=== PATIENT | female | born 1950 | race Caucasian/White ===

== ENCOUNTER 2024-02-03 13:59 | Inpatient (IN) | payer MEDICARE, OTHER ==
[~2024-02-03] VITALS: Ht 180.3 cm; Wt 107.0 kg
[2024-02-03] MEDS ORDERED: RACEPINEPHRINE HCL 2.25% 0.5 ML NEBU ONE (14:16)
[2024-02-03] MEDS ORDERED: DILT180T PO (14:31)
[2024-02-03] MEDS ORDERED: ASPI-1094 PO (14:31)
[2024-02-03] MEDS ORDERED: PIPERACILLIN/TAZOBACTAM/D5W 50 ML IV ONE (14:36)
[2024-02-03] MEDS: PIPERACILLIN SODIUM/TAZOBACTAM 3.375 G in IV DEXTROSE 5% 50 ML IV ONE (14:38)
[2024-02-03] MEDS: IV NORMAL SALINE 1000 ML BAG IV ONE (14:38)
[2024-02-03 14:50] LABS: CALCIUM 9.8 mg/dL (8.5-10.1); CARBON DIOXIDE 28 mmol/L (21-32); CHLORIDE 97 mmol/L (98-107); CREATININE 0.8 mg/dL (0.6-1.3); GLUCOSE 142 mg/dL (74-106); POTASSIUM 4.1 mmol/L (3.5-5.1); SODIUM SERUM 136 mmol/L (136-145); UREA NITROGEN, BLOOD 16 mg/dL (7-18)
[2024-02-03 14:52] LABS: BASOPHILS % (AUTO) 0.3 % (0.0-2.0); EOSINOPHILS % (AUTO) 0.1 % (0.0-7.0); HEMATOCRIT 47.4 % (31.2-41.9); LYMPHOCYTES # (AUTO) 0.8 K/uL (0.8-4.8); LYMPHOCYTES % (AUTO) 7.6 % (20.5-51.5); MEAN CORPUSCULAR HEMOGLOBIN 35.4 uug (24.7-32.8); MEAN CORPUSCULAR HGB CONC 34 g/dL (32.3-35.6); MEAN CORPUSCULAR VOLUME 104.7 fL (75.5-95.3); MONOCYTES # (AUTO) 1.2 K/uL (0.1-1.30); MONOCYTES % (AUTO) 11.8 % (0.0-11.0); NEUTROPHILS % (AUTO) 80.2 % (38.5-71.5); PLATELET COUNT (AUTO) 203 K/uL (179-408); RED BLOOD CELL COUNT(AUTO) 4.53 MIL/uL (3.63-4.92)
[2024-02-03 14:53] LABS: DIFFERENTIAL COMMENT 1
[2024-02-03 14:59] LABS: ALANINE AMINOTRANSFERASE 22 U/L (14-59); ALBUMIN 3.1 g/dL (3.4-5.0); ALKALINE PHOSPHATASE 65 U/L (50-136); ASPARTATE AMINOTRANSFERASE 6 U/L (15-37); BILIRUBIN,DIRECT 0.4 mg/dL (0.0-0.2); BILIRUBIN,TOTAL 1.1 mg/dL (0.2-1.0); TOTAL PROTEIN, SERUM 7.2 g/dL (6.4-8.2)
[2024-02-03 17:26] LABS: *BILIRUBIN,URIN NEGATIVE (NEGATIVE); *BLOOD, URINE NEGATIVE (NEGATIVE); *CLARITY,URINE CLEAR (CLEAR); *COLOR,URINE YELLOW (YELLOW); *KETONES,URINE 2+ (NEGATIVE); *PROTEIN,URINE NEGATIVE (NEGATIVE); *UROBILINOGEN,URINE 0.2 E.U./dl (NORMAL); LEUKOCYTE ESTERASE ,URINE NEGATIVE (NEGATIVE); NITRITE, URINE NEGATIVE (NEGATIVE); UGLUCOSE 2+ (NEGATIVE)
[2024-02-03 17:52] LABS: BACTERIA,URINE NONE SEEN /HPF (NONE SEEN); RBC,URINE NONE SEEN /HPF (0-3); SQUAMOUS EPITHELIAL CELL,UR FEW /HPF (NONE SEEN); WBC,URINE 0-3 /HPF (0-3)
[2024-02-03] MEDS ORDERED: ONDANSETRON 4 MG/2 ML VIAL IV PRN (18:15)
[2024-02-03] MEDS ORDERED: TEMAZEPAM 15 MG CAPSULE PO PRN (18:15)
[2024-02-03 18:26] VITALS: BP 131/113; TEMP 97.8; O2SAT 95
[2024-02-03 19:00] VITALS: BP 142/72; O2SAT 95
[2024-02-03] MEDS ORDERED: SPIR25TA6 PO (19:13)
[2024-02-03] MEDS ORDERED: METO-356 PO (19:13)
[2024-02-03] MEDS ORDERED: FLUO40CA8 PO (19:14)
[2024-02-03] MEDS ORDERED: DOCU250C14 PO (19:14)
[2024-02-03] MEDS ORDERED: DIGO250T PO (19:15)
[2024-02-03] MEDS ORDERED: ATOR20TA PO (19:15)
[2024-02-03] MEDS ORDERED: EMPA10TA PO (19:16)
[2024-02-03] MEDS: VANCOMYCIN HCL 1,500 MG in IV DEXTROSE 5% 500 ML IV SCH (19:24)
[2024-02-03 20:00] VITALS: BP 134/75; TEMP 98.8; O2SAT 95
[2024-02-03] MEDS: ATORVASTATIN 20 MG TABLET PO SCH (20:46)
[2024-02-03] MEDS: ACIDOPHILUS/BULGARICUS CHEW TAB PO SCH (20:46)
[2024-02-03] MEDS: DIGOXIN 125 MCG TABLET PO SCH (20:47)
[2024-02-03] MEDS: HYDROCODONE/APAP 5-325MG TABLET PO PRN (20:49)
[2024-02-03 21:00] VITALS: BP 138/89; O2SAT 96
[2024-02-03] MEDS ORDERED: DOCUSATE SODIUM 250 MG CAPSULE PO SCH (21:00)
[2024-02-03] MEDS: ENOXAPARIN SODIUM 100 MG/ML DISP.SYRIN SQ SCH (21:00)
[2024-02-03 21:30] VITALS: O2SAT 96
[2024-02-03] MEDS ORDERED: PIPERACILLIN SODIUM/TAZOBACTAM 3.375 G in IV DEXTROSE 5% 50 ML IV SCH (22:00)
[2024-02-03 23:26] VITALS: BP 106/67; TEMP 99.4; O2SAT 93
[2024-02-03] MEDS: PIPERACILLIN SODIUM/TAZOBACTAM 3.375 G in IV DEXTROSE 5% 100 ML IV SCH (23:48)
[2024-02-03] MEDS: DOCUSATE SODIUM 100 MG CAPSULE PO SCH (23:49)
[2024-02-04 04:30] VITALS: BP 126/74; TEMP 98.6; O2SAT 95
[2024-02-04] MEDS: PANTOPRAZOLE SODIUM 40 MG TABLET.DR PO SCH (06:07)
[2024-02-04 06:53] LABS: BASOPHILS % (AUTO) 0.4 % (0.0-2.0); EOSINOPHILS % (AUTO) 0.7 % (0.0-7.0); HEMATOCRIT 46.2 % (31.2-41.9); HEMOGLOBIN 15.4 g/dL (10.9-14.3); LYMPHOCYTES # (AUTO) 1.1 K/uL (0.8-4.8); LYMPHOCYTES % (AUTO) 16.7 % (20.5-51.5); MEAN CORPUSCULAR HEMOGLOBIN 36.2 uug (24.7-32.8); MEAN CORPUSCULAR HGB CONC 34 g/dL (32.3-35.6); MEAN CORPUSCULAR VOLUME 108.1 fL (75.5-95.3); MONOCYTES # (AUTO) 0.7 K/uL (0.1-1.30); NEUTROPHILS # (AUTO) 4.7 K/uL (1.8-8.9); NEUTROPHILS % (AUTO) 72.2 % (38.5-71.5); PLATELET COUNT (AUTO) 164 K/uL (179-408); RED BLOOD CELL COUNT(AUTO) 4.27 MIL/uL (3.63-4.92); RED CELL DISTRIBUTION WIDTH 14.4 % (12.3-17.7); WHITE BLOOD COUNT (AUTO) 6.5 K/uL (3.8-11.8)
[2024-02-04 07:12] LABS: DIFFERENTIAL COMMENT 1
[2024-02-04 07:32] VITALS: BP 129/75; TEMP 98.5; O2SAT 94
[2024-02-04 07:50] LABS: ALANINE AMINOTRANSFERASE 18 U/L (14-59); ALBUMIN 2.4 g/dL (3.4-5.0); ALKALINE PHOSPHATASE 50 U/L (50-136); ASPARTATE AMINOTRANSFERASE 7 U/L (15-37); BILIRUBIN,TOTAL 0.9 mg/dL (0.2-1.0); CARBON DIOXIDE 28 mmol/L (21-32); CHLORIDE 105 mmol/L (98-107); CHOLESTEROL 130 mg/dL (<200); CREATININE 0.5 mg/dL (0.6-1.3); GLUCOSE 124 mg/dL (74-106); HDL CHOLESTEROL 72 mg/dL (40-60); MAGNESIUM 2.1 mg/dL (1.8-2.4); PHOSPHOROUS 3.7 mg/dL (2.5-4.9); POTASSIUM 3.5 mmol/L (3.5-5.1); SODIUM SERUM 139 mmol/L (136-145); TRIGLYCERIDES 55 MG/DL (30-150); UREA NITROGEN, BLOOD 7 mg/dL (7-18)
[2024-02-04 08:20] LABS: THYROID STIMULATING HORMONE 0.968 mIU/mL (0.358-3.740)
[2024-02-04] MEDS ORDERED: Medication Not On Formulary EA (Empagliflozin (Jardiance) 10 MG) PO SCH (09:00)
[2024-02-04] MEDS ORDERED: DILTIAZEM HCL 180 MG PO SCH (09:00)
[2024-02-04] MEDS: DILTIAZEM HCL CD 180 MG CAP.SR.24H PO SCH (09:40)
[2024-02-04] MEDS: SPIRONOLACTONE 25 MG TABLET PO SCH (09:40)
[2024-02-04] MEDS: FLUOXETINE HCL 20 MG CAPSULE PO SCH (09:40)
[2024-02-04] MEDS: ASPIRIN 81 MG TAB.CHEW PO SCH (09:40)
[2024-02-04] MEDS: EMPAGLIFLOZIN 10 MG TABLET PO SCH (10:04)
[2024-02-04] MEDS: METOPROLOL SUCCINATE XL 25 MG TAB.SR.24H PO SCH (10:05)
[2024-02-04 11:36] VITALS: BP 124/80; TEMP 99.4; O2SAT 100
[2024-02-04] MEDS: HYDROCODONE/APAP 10-325 MG TABLET PO PRN (13:49)
[2024-02-04 15:53] VITALS: BP 110/65; TEMP 98.8; O2SAT 98
[2024-02-04] MEDS: NEOMY/BACITRAC/POLYMI OINT 28.35 GM TUBE TOP SCH (18:00)
[2024-02-04 19:00] VITALS: BP 129/83; TEMP 98.1; O2SAT 95
[2024-02-05] VITALS: BP 128/80; TEMP 98.8; O2SAT 95
[2024-02-05 05:00] VITALS: BP 127/75; TEMP 98.6; O2SAT 95
[2024-02-05 07:22] LABS: BASOPHILS % (AUTO) 0.6 % (0.0-2.0); EOSINOPHILS # (AUTO) 0.1 K/uL (0.0-0.7); HEMATOCRIT 42.2 % (31.2-41.9); HEMOGLOBIN 14.3 g/dL (10.9-14.3); LYMPHOCYTES # (AUTO) 1.3 K/uL (0.8-4.8); MEAN CORPUSCULAR HEMOGLOBIN 35.8 uug (24.7-32.8); MEAN CORPUSCULAR HGB CONC 34 g/dL (32.3-35.6); MEAN CORPUSCULAR VOLUME 105.5 fL (75.5-95.3); MONOCYTES # (AUTO) 0.7 K/uL (0.1-1.30); MONOCYTES % (AUTO) 11.8 % (0.0-11.0); NEUTROPHILS # (AUTO) 3.8 K/uL (1.8-8.9); NEUTROPHILS % (AUTO) 63.6 % (38.5-71.5); PLATELET COUNT (AUTO) 185 K/uL (179-408)
[2024-02-05 08:02] VITALS: BP 122/68; TEMP 98.3; O2SAT 96
[2024-02-05 08:20] LABS: DIFFERENTIAL COMMENT 1
[2024-02-05 09:07] LABS: CALCIUM 9.1 mg/dL (8.5-10.1); CARBON DIOXIDE 26 mmol/L (21-32); CHLORIDE 103 mmol/L (98-107); CREATININE 0.6 mg/dL (0.6-1.3); GLUCOSE 137 mg/dL (74-106); PHOSPHOROUS 3.9 mg/dL (2.5-4.9); SODIUM SERUM 138 mmol/L (136-145); UREA NITROGEN, BLOOD 7 mg/dL (7-18)
[2024-02-05 09:18] LABS: MAGNESIUM 2.1 mg/dL (1.8-2.4)
[2024-02-05 11:13] LABS: VANCOMYCIN,TROUGH 13.3 ug/mL (10.0-20.0)
[2024-02-05 11:51] VITALS: BP 108/77; TEMP 98; O2SAT 96
[2024-02-05] MEDS: VANCOMYCIN HCL 1,500 MG in IV DEXTROSE 5% 500 ML IV SCH (12:00)
[2024-02-05 15:44] VITALS: BP 116/66; TEMP 97.8; O2SAT 98
[2024-02-05 20:22] VITALS: BP 109/63; TEMP 98.1; O2SAT 95
[2024-02-06 04:25] VITALS: BP 97/57; TEMP 98.1; O2SAT 94
[2024-02-06] MEDS ORDERED: METOPROLOL SUCCINATE XL 25 MG TAB.SR.24H PO SCH (09:00)
[2024-02-06 09:51] VITALS: BP 111/72; O2SAT 94
[2024-02-06] MEDS: METOPROLOL SUCCINATE XL 50 MG TAB.SR.24H PO SCH (09:54)
[2024-02-06 11:58] VITALS: BP 116/65; TEMP 98.4; O2SAT 94
[2024-02-06 15:58] VITALS: BP 110/61; TEMP 97.8; O2SAT 94
[2024-02-06 19:20] VITALS: BP 93/55; TEMP 97.9; O2SAT 93
[2024-02-07] MEDS: ACETAMINOPHEN 325 MG TABLET PO PRN (03:10)
[2024-02-07 04:22] VITALS: BP 97/60; TEMP 97.7; O2SAT 91
[2024-02-07 12:00] VITALS: BP 131/60; TEMP 97.6; O2SAT 97
[2024-02-07 16:00] VITALS: BP 114/79; TEMP 97.7; O2SAT 98
[2024-02-07] MEDS: MAGNESIUM HYDROXIDE 30 ML LIQUID UDC PO PRN (18:27)
[2024-02-07 20:32] VITALS: BP 111/69; TEMP 98.4; O2SAT 98
[2024-02-08 04:37] VITALS: BP 121/66; TEMP 98; O2SAT 94
[2024-02-08 06:28] LABS: BASOPHILS % (AUTO) 0.7 % (0.0-2.0); EOSINOPHILS # (AUTO) 0.1 K/uL (0.0-0.7); EOSINOPHILS % (AUTO) 2.1 % (0.0-7.0); HEMOGLOBIN 14.6 g/dL (10.9-14.3); LYMPHOCYTES # (AUTO) 1.3 K/uL (0.8-4.8); LYMPHOCYTES % (AUTO) 23.9 % (20.5-51.5); MEAN CORPUSCULAR HEMOGLOBIN 36.5 uug (24.7-32.8); MEAN CORPUSCULAR HGB CONC 35 g/dL (32.3-35.6); MEAN CORPUSCULAR VOLUME 104.8 fL (75.5-95.3); MONOCYTES # (AUTO) 0.6 K/uL (0.1-1.30); MONOCYTES % (AUTO) 10.3 % (0.0-11.0); NEUTROPHILS # (AUTO) 3.4 K/uL (1.8-8.9); PLATELET COUNT (AUTO) 225 K/uL (179-408); RED BLOOD CELL COUNT(AUTO) 4.01 MIL/uL (3.63-4.92); RED CELL DISTRIBUTION WIDTH 13.8 % (12.3-17.7); WHITE BLOOD COUNT (AUTO) 5.5 K/uL (3.8-11.8)
[2024-02-08 06:41] LABS: CALCIUM 9.1 mg/dL (8.5-10.1); CARBON DIOXIDE 30 mmol/L (21-32); CHLORIDE 106 mmol/L (98-107); CREATININE 0.6 mg/dL (0.6-1.3); GLUCOSE 122 mg/dL (74-106); MAGNESIUM 2.1 mg/dL (1.8-2.4); PHOSPHOROUS 3.9 mg/dL (2.5-4.9); SODIUM SERUM 142 mmol/L (136-145); UREA NITROGEN, BLOOD 10 mg/dL (7-18)
[2024-02-08 06:51] LABS: POTASSIUM 4.4 mmol/L (3.5-5.1)
[2024-02-08 07:11] LABS: DIFFERENTIAL COMMENT 1
[2024-02-08] MEDS: METOPROLOL SUCCINATE XL 25 MG TAB.SR.24H PO SCH (08:34)
[2024-02-08 12:41] VITALS: BP 109/78; TEMP 97.5; O2SAT 97
[2024-02-08] MEDS ORDERED: ACID1TAB4 PO (13:25)
[2024-02-08] MEDS ORDERED: AMOX-430 PO (13:26)
== END 2024-02-08 17:30 | disposition home health service (06) | DRG 872 ==
LOC: ER 13:59 → CCU 17:20 → MEDSURG3 22:20 → TELE3 22:25 → MEDSURG3 02-05 12:00
PROVIDERS: ADMIT Internal Medicine; ATTEND Internal Medicine
PROC: 05HB33Z Insertion of Infusion Device into Right Basilic Vein, Percutaneous Approach (ICD-10-PCS; principal; 2024-02-06)
DX: A41.9 Sepsis, unspecified organism (principal); L03.114 Cellulitis of left upper limb; I48.20 Chronic atrial fibrillation, unspecified; D68.59 Other primary thrombophilia; E44.0 Moderate protein-calorie malnutrition; D69.0 Allergic purpura; S61.452A Open bite of left hand, initial encounter; W55.01XA Bitten by cat, initial encounter; Y92.039 Unspecified place in apartment as the place of occurrence of the external cause; Z74.09 Other reduced mobility; E66.9 Obesity, unspecified; Z95.818 Presence of other cardiac implants and grafts; Z68.32 Body mass index [BMI] 32.0-32.9, adult; Z87.891 Personal history of nicotine dependence; M15.9 Polyosteoarthritis, unspecified; E53.8 Deficiency of other specified B group vitamins; E80.6 Other disorders of bilirubin metabolism; J06.9 Acute upper respiratory infection, unspecified; T45.515D Adverse effect of anticoagulants, subsequent encounter; E11.9 Type 2 diabetes mellitus without complications; I11.9 Hypertensive heart disease without heart failure; Z98.42 Cataract extraction status, left eye; Z98.41 Cataract extraction status, right eye; N39.3 Stress incontinence (female) (male); Z79.899 Other long term (current) drug therapy; R60.0 Localized edema; D75.89 Other specified diseases of blood and blood-forming organs; Z96.653 Presence of artificial knee joint, bilateral
CPT/HCPCS: 36415; 71045; 83605; 83735; 84100; 84443; 84484; 85025; 85730; 87040; A4606; A4663; G0378; J1650; J2543; J3371; J7060